=== PATIENT | female | born 1990 | race American Indian/Alaskan Native ===

== ENCOUNTER 2018-12-06 12:43 | Emergency (ER) | payer OTHER ==
[2018-12-06 13:19] VITALS: BP 116/81
[2018-12-06] MEDS ORDERED: IBUPROFEN PO STA (13:21)
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
--- NOTE | 2018-12-06 14:28 | XRay Report ---
PROCEDURE: XR WRIST 3+V RT TECHNIQUE: AP, oblique, lateral view and a navicular view were obtained. HISTORY: pain in wrist COMPARISONS: None FINDINGS: There is no evidence of fracture or dislocation bone density and joint spaces appear normal. No erosi ons are identified. No abnormal soft tissue calcifications or foreign bodies are identified. IMPRESSION: Negative exam This document is electronically signed by Star Garcia MD., Dec 06 2018 02:25:46 PM ET
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
--- NOTE | 2018-12-06 14:32 | XRay Report ---
PROCEDURE: XR CHEST ROUTINE 2V TECHNIQUE: PA and lateral views of the chest were obtained HISTORY: wheeze COMPARISONS: None FINDINGS: Heart size and pulmonary vasculature appear normal. Lungs are clear. No infiltrates masses or effusio ns are seen. No acute bone abnormalities are identified. IMPRESSION: Negative exam. This document is electronically signed by Star Garcia MD., Dec 06 2018 02:30:12 PM ET
--- NOTE | 2018-12-06 14:46 | XRay Report ---
PROCEDURE: XR SPINE CERVICAL 2-3V TECHNIQUE: Cervical spine radiographs, 3 views. HISTORY: neck pain COMPARISONS: None currently available. FINDINGS: Straightening of the normal lordotic alignment with slight reversal at C4-C5. Vertebral body heights are uniform. No fracture. Disc spaces are intact. No subluxation. Prevertebral soft tissues are unrem arkable. No scoliosis. No suspicious osseous lesions. No retro-orbital anomalies. Asymmetrical alignment of th e lateral masses of C1 relative to C2. IMPRESSION: * Asymmetrical alignment of the lateral masses of C1 relative to C2. Findings could be related to ro tatory subluxation/dislocation or head rotation. Recommend repeat x-ray in AP positioning. Patient is unable to center the head relative to the spine and then CT scan may be helpful. * Nonspecific straightening of the normal lordotic alignment with slight reversal. * No fracture. This document is electronically signed by Ryan Chowdhury MD., Dec 06 2018 02:44:09 PM ET
--- NOTE | 2018-12-06 15:57 | Cat Scan Report ---
PROCEDURE: CT CERVICAL SPINE WO CON TECHNIQUE: Spiral CT imaging of the brain was obtained without IV contrast. HISTORY: abnormal xray COMPARISONS: Plain film cervical spine 12/06/2018 FINDINGS: Alignment appears normal. No fracture or subluxation is visualized. Alignment of the lateral masses o f C1 appear normal. Posterior elements are intact. Minimal anterior osteophytic spurring visualized C 6-C7. No focal disc herniation or spinal stenosis is identified. Disc spaces otherwise appear normal. Prevertebral soft tissues are normal. IMPRESSION: Minimal degenerative disc disease C6-C7. No fracture or subluxation is seen. Alignment of C1 lateral masses in relation to C2 appears normal. Findings on recent plain films of the cervical spine may have been related to rotation of the patient 's head and oblique orientation.. This document is electronically signed by Star Garcia MD., Dec 06 2018 03:55:04 PM ET
== END 2018-12-06 16:10 | disposition home or self-care (01) ==
LOC: ED 12:43
DX: S16.1XXA Strain of muscle, fascia and tendon at neck level, initial encounter (principal); S20.219A Contusion of unspecified front wall of thorax, initial encounter; S60.211A Contusion of right wrist, initial encounter; M54.9 Dorsalgia, unspecified; V49.49XA Driver injured in collision with other motor vehicles in traffic accident, initial encounter; Y93.89 Activity, other specified; Y92.89 Other specified places as the place of occurrence of the external cause; Y99.8 Other external cause status
CPT/HCPCS: 71046; 72040; 72100; 72125

== ENCOUNTER 2019-03-31 18:29 | Emergency (ER) | payer MEDICAID, OTHER ==
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
[2019-03-31 19:42] LABS: Basophils % (Auto) 0.5 % (0.0-1.8); Eosinophils # (Auto) 0.4 K/mm3 (0.0-0.4); Eosinophils % (Auto) 3.7 % (0.0-4.3); Hemoglobin 14.1 gm/dl (10.1-14.3); Lymphocytes # (Auto) 3.3 K/mm3 (1.2-5.4); Lymphocytes % (Auto) 34.5 % (13.4-35.0); Mean Corpuscular HGB Conc 34 % (30-34); Mean Corpuscular Volume 91 fl (79-97); Monocytes # (Auto) 0.6 K/mm3 (0.0-0.8); Monocytes % (Auto) 5.7 % (0.0-7.3); Platelet Count 288 K/mm3 (140-440); Red Blood Count 4.64 M/mm3 (3.65-5.03)
[2019-03-31 19:57] LABS: BUN/Creatinine Ratio 11; Blood Urea Nitrogen 9 mg/dL (7-17); Calcium 8.3 mg/dL (8.4-10.2); Hemolysis Index 9
[2019-03-31 20:37] LABS: Bilirubin,Urine NEG (Negative); Blood,Urine NEG (Negative); Color,Urine Yellow (Yellow); Mucus,Urine 1+ /HPF; Protein,Urine <15 mg/dL mg/dL (Negative)
[2019-03-31 20:39] LABS: HCG Qualitative,Urine Negative (Negative)
--- NOTE | 2019-03-31 22:34 | XRay Report ---
CHEST 2 VIEWS INDICATION: chest pain. COMPARISON: 12/06/2008. FINDINGS: Support devices: None. Heart: Within normal limits. Lungs/Pleura: No acute air space or interstitial disease. No significant pleural effusion. IMPRESSION: No acute findings. Signer Name: Jaiden Granados MD Signed: 03/31/2019 10:30 PM Workstation Name: [id number]
--- NOTE | 2019-03-31 23:28 | Emergency Department Report ---
ED General Adult HPI - General Chief complaint: Extremity Problem,Nontraumatic Stated complaint: UPPER ABD/CHEST/(R) HIP PAIN Time Seen by Provider: 03/31/19 19:19 Source: patient Mode of arrival: Ambulatory Limitations: No Limitations - Related Data Previous Rx's Medication Instructions Recorded Last Taken Type Ciprofloxacin HCl [Ciprofloxacin 500 mg PO BID #14 tablet 01/10/16 Unknown Rx TAB] Cyclobenzaprine HCl [Flexeril 5 MG 5 mg PO Q8HR PRN #15 tablet 01/10/16 Unknown Rx TAB] Ibuprofen [Motrin 800 MG tab] 800 mg PO Q8HR PRN #30 tablet 01/10/16 Unknown Rx metroNIDAZOLE [Flagyl] 500 mg PO Q12HR #14 tab 05/28/18 Unknown Rx Cyclobenzaprine [Flexeril] 10 mg PO TID PRN #15 tablet 12/06/18 Unknown Rx Naproxen [Naprosyn] 500 mg PO BID #20 tablet 12/06/18 Unknown Rx Omeprazole 40 mg PO DAILY #14 capsule. 03/31/19 Unknown Rx Ondansetron [Zofran Odt] 4 mg PO Q8HR #10 tab.rapdis 03/31/19 Unknown Rx Allergies Allergy/AdvReac Type Severity Reaction Status Date / Time No Known Allergies Allergy Verified 12/01/15 20:45 ED Review of Systems ROS: Stated complaint: UPPER ABD/CHEST/(R) HIP PAIN Other details as noted in HPI Comment: All other systems reviewed and negative ED Past Medical Hx - Past Medical History Previous Medical History?: No - Surgical History Past Surgical History?: No - Social History Smoking Status: Never Smoker - Medications Home Medications: Home Medications Medication Instructions Recorded Confirmed Last Taken Type Ciprofloxacin HCl [Ciprofloxacin 500 mg PO BID #14 tablet 01/10/16 Unknown Rx TAB] Cyclobenzaprine HCl [Flexeril 5 MG 5 mg PO Q8HR PRN #15 tablet 01/10/16 Unknown Rx TAB] Ibuprofen [Motrin 800 MG tab] 800 mg PO Q8HR PRN #30 tablet 01/10/16 Unknown Rx metroNIDAZOLE [Flagyl] 500 mg PO Q12HR #14 tab 05/28/18 Unknown Rx Cyclobenzaprine [Flexeril] 10 mg PO TID PRN #15 tablet 12/06/18 Unknown Rx Naproxen [Naprosyn] 500 mg PO BID #20 tablet 12/06/18 Unknown Rx Omeprazole 40 mg PO DAILY #14 capsule. 03/31/19 Unknown Rx Ondansetron [Zofran Odt] 4 mg PO Q8HR #10 tab.lety 03/31/19 Unknown Rx ED Physical Exam - General Limitations: No Limitations General appearance: alert, in no apparent distress - Head Head exam: Present: atraumatic, normocephalic - Eye Eye exam: Present: normal appearance, PERRL, EOMI Pupils: Present: normal accommodation - ENT ENT exam: Present: normal exam, normal orophraynx, mucous membranes moist, TM's normal bilaterally - Neck Neck exam: Present: normal inspection, full ROM - Respiratory Respiratory exam: Present: normal lung sounds bilaterally. Absent: respiratory distress, wheezes, rales, rhonchi - Cardiovascular Cardiovascular Exam: Present: regular rate, normal rhythm. Absent: systolic murmur, diastolic murmur, rubs, gallop - GI/Abdominal GI/Abdominal exam: Present: soft, normal bowel sounds. Absent: distended, tenderness, hyperactive bowel sounds, hypoactive bowel sounds, organomegaly - Extremities Exam Extremities exam: Present: normal inspection, full ROM, normal capillary refill. Absent: pedal edema, joint swelling, calf tenderness - Back Exam Back exam: Present: normal inspection, tenderness. Absent: muscle spasm, paraspinal tenderness - Neurological Exam Neurological exam: Present: alert, oriented X3, CN II-XII intact. Absent: normal gait - Psychiatric Psychiatric exam: Present: normal affect, normal mood. Absent: anxious, flat affect, manic - Skin Skin exam: Present: warm, dry, intact, normal color. Absent: rash ED Course Vital Signs 03/31/19 19:19 Temperature 98.5 F Pulse Rate 74 Respiratory 18 Rate Blood Pressure 118/75 O2 Sat by Pulse 100 Oximetry ED Medical Decision Making - Lab Data Result diagrams: 03/31/19 19:32 03/31/19 19:32 Critical care attestation.: If time is entered above; I have spent that time in minutes in the direct care of this critically ill patient, excluding procedure time. ED Disposition Disposition: - TO HOME OR SELFCARE Condition: Stable Instructions: Chest Pain (ED), Gastroesophageal Reflux Disease (ED), Acute Nausea and Vomiting (ED), Acute Diarrhea (ED), Abdominal Pain (ED), Noncardiac Chest Pain (ED) Prescriptions: Omeprazole 40 mg PO DAILY #14 capsule. Ondansetron [Zofran Odt] 4 mg PO Q8HR #10 tab.lety Referrals: [facility] [Provider Group] - 3-5 Days
[2019-03-31 23:58] VITALS: BP 114/76
== END 2019-03-31 23:56 | disposition home or self-care (01) ==
LOC: ED 18:29
DX: R10.10 Upper abdominal pain, unspecified (principal); M25.551 Pain in right hip; R11.0 Nausea; R07.89 Other chest pain; Z79.899 Other long term (current) drug therapy
CPT/HCPCS: 36415; 71046; 80048; 81001; 81025; 85025

== ENCOUNTER 2019-04-21 03:35 | Emergency (ER) | payer MEDICAID ==
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
[2019-04-21 04:54] LABS: HCG Qualitative,Urine Negative (Negative)
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
[2019-04-21 07:55] VITALS: BP 102/72
== END 2019-04-21 07:55 | disposition home or self-care (01) ==
LOC: ED 03:35
DX: S30.0XXA Contusion of lower back and pelvis, initial encounter (principal); Z79.899 Other long term (current) drug therapy; Y04.8XXA Assault by other bodily force, initial encounter; Y93.89 Activity, other specified; Y92.89 Other specified places as the place of occurrence of the external cause; Y99.8 Other external cause status
CPT/HCPCS: 70450; 72125; 81025; 99284

== ENCOUNTER 2019-04-21 07:58 | Emergency (ER) | payer SELFPAY ==
--- NOTE | 2019-04-21 10:05 | Emergency Department Report ---
ED Dysuria HPI - HPI Chief Complaint: Urogenital-Female Stated Complaint: VAGINAL IRRIATATION Time Seen by Provider: 04/21/19 10:02 Duration: 2 Days Severity: Mild Symptoms: Dysuria: No, Frequency: No, Suprapubic Pain: No, Flank Pain: No, Fever: No, Hematuria: No, Abdominal Pain: No, Previous UTI's: No Other History: 28 YO COMES WITH VAGINAL IRRITATION. NO DISCHARGE. NO PAIN. NO DYSURIA. NO BACK PAIN. SHE THINKS IT MAY BE FEMALE PRODUCTS SHE IS USING. "JUST WANTED TO MAKE SURE.". AMBULATORY. NON ILL APPEARING. NO FEVER. ED Review of Systems ROS: Stated complaint: VAGINAL IRRIATATION Other details as noted in HPI Comment: All other systems reviewed and negative ED Past Medical Hx - Past Medical History Previous Medical History?: No Additional medical history: bronchitis - Surgical History Past Surgical History?: No - Family History Family history: no significant - Social History Smoking Status: Never Smoker - Medications Home Medications: Home Medications Medication Instructions Recorded Confirmed Last Taken Type Ciprofloxacin HCl [Ciprofloxacin 500 mg PO BID #14 tablet 01/10/16 Unknown Rx TAB] Cyclobenzaprine HCl [Flexeril 5 MG 5 mg PO Q8HR PRN #15 tablet 01/10/16 Unknown Rx TAB] Ibuprofen [Motrin 800 MG tab] 800 mg PO Q8HR PRN #30 tablet 01/10/16 Unknown Rx metroNIDAZOLE [Flagyl] 500 mg PO Q12HR #14 tab 05/28/18 Unknown Rx Cyclobenzaprine [Flexeril] 10 mg PO TID PRN #15 tablet 12/06/18 Unknown Rx Naproxen [Naprosyn] 500 mg PO BID #20 tablet 12/06/18 Unknown Rx Omeprazole 40 mg PO DAILY #14 capsule. 03/31/19 Unknown Rx Ondansetron [Zofran Odt] 4 mg PO Q8HR #10 tab.rapaixa 03/31/19 Unknown Rx Dysuria Exam - Exam General: Vital signs noted. No distress. Alert and acting appropriately. Exam: Yes Moist Mucous Membranes, No CVA Tenderness, No Abdominal Tenderness, No Rigidity or Guarding ED Medical Decision Making - Medical Decision Making Labs 04/21/19 10:24 Urine Color Yellow Urine Turbidity Clear Urine pH 5.0 Ur Specific [place] 1.011 Urine Protein <15 mg/dl Urine Glucose (UA) Neg Urine Ketones Neg Urine Blood Neg Urine Nitrite Neg Urine Bilirubin Neg Urine Urobilinogen < 2.0 Ur Leukocyte Esterase Neg Urine WBC (Auto) < 1.0 Urine RBC (Auto) 1.0 U Epithel Cells (Auto) 1.0 Urine Mucus Few RN ASKED TO CHART VS. ON PAPERWORK NORMAL. AFEBRILE TAKING PO NON ILL APPEARING PT DENIES CONCERN FOR STI; SHE THOUGHT SHE MAY HAVE A UTI. SHE REPORTS NOT BEING SEXUALLY ACTIVE. URINE NOTED - Differential Diagnosis RO UTI Critical care attestation.: If time is entered above; I have spent that time in minutes in the direct care of this critically ill patient, excluding procedure time. ED Disposition Clinical Impression: Vaginal irritation Disposition: - TO HOME OR SELFCARE Is pt being admited?: No Does the pt Need Aspirin: No Condition: Stable Additional Instructions: AVOID CULPIT PRODUCTS Referrals: PRIMARY CAREMD [Primary Care Provider] - 3-5 Days MAIDA MENDOZA MD [Staff Physician] - 3-5 Days Time of Disposition: 10:52
[2019-04-21 10:33] LABS: Bilirubin,Urine NEG (Negative); Blood,Urine NEG (Negative); Color,Urine Yellow (Yellow); Mucus,Urine FEW /HPF; Protein,Urine <15 mg/dL mg/dL (Negative); Urobilinogen,Urine < 2.0 mg/dL (<2.0); WBC,Urine < 1.0 /HPF (0.0-6.0)
== END 2019-04-21 10:56 | disposition home or self-care (01) ==
LOC: ED 07:58
DX: N89.8 Other specified noninflammatory disorders of vagina (principal); Z79.899 Other long term (current) drug therapy
CPT/HCPCS: 81001